=== PATIENT | female | born 1985 | race Caucasian/White ===

== ENCOUNTER 2019-06-10 13:14 | Emergency (ER) | payer OTHER ==
[2019-06-10] MEDS: DEXAMETHASONE 10 MG/ML 1 ML INJ IM (14:22)
[2019-06-10] MEDS: FAMOTIDINE 20 MG TAB PO (14:22)
== END 2019-06-10 14:31 | disposition home or self-care (01) ==
LOC: FTE 13:14
DX: L50.0 Allergic urticaria (principal)
CPT/HCPCS: 96372; 99284-25